=== PATIENT | female | born 1980 | race Caucasian/White ===

== ENCOUNTER 2019-10-04 13:01 | Outpatient (CLI) | payer OTHER ==
[~2019-10-04] VITALS: Ht 165.1 cm; Wt 77.5 kg
[2019-10-04 13:54] LABS: MEAN CELL VOLUME 93 fl (80.0-100.0); MEAN CORPUSCULAR HEMOGLOBIN 31 pg (27.0-31.0); MEAN CORPUSCULAR HGB CONC 33 g/dl (33.0-37.0); MEAN PLATELET VOLUME 9.2 fl (7.4-10.4); PLATELET COUNT 306 K/mm3 (130-400); RED BLOOD COUNT 3.92 M/mm3 (4.10-5.30); REDCELL DISTRIBUTION WIDTH-CV 13.2 % (11.5-14.5)
[2019-10-04 13:55] LABS: HEMATOCRIT 36.5 % (37.0-47.0)
[2019-10-04 14:06] LABS: ALBUMIN 4.1 gm/dL (3.5-5.0); BILIRUBIN,TOTAL 0.3 mg/dL (0.0-1.0); CALCIUM 9.2 mg/dL (8.4-10.2); CREATININE, serum 0.63 (0.52-1.25); POTASSIUM 3.9 mmol/L (3.4-5.0); TOTAL PROTEIN 7.8 gm/dL (6.4-8.2)
[2019-10-04] MEDS ORDERED: GAS RELIEF 8080 MG PO (14:44)
[2019-10-04] MEDS ORDERED: IMODIUM 2MG CAPS2 MG PO (14:46)
[2019-10-04] MEDS ORDERED: MULTI VITAMINS1 TAB PO (14:47)
[2019-10-04 15:04] VITALS: BP 98/79; PULSE 58; TEMP 97.6
[2019-10-04 15:30] VITALS: BP 109/81; PULSE 64
[2019-10-04 16:00] VITALS: BP 108/73; PULSE 57
[2019-10-04 16:30] VITALS: BP 95/54; PULSE 65
[2019-10-04 17:00] VITALS: BP 97/58; PULSE 70
[2019-10-04 17:15] VITALS: BP 96/65; PULSE 67; TEMP 97.9
== END 2019-10-04 17:41 | disposition home or self-care (01) ==
LOC: EUO 13:01
PROVIDERS: Internal Medicine Gastroenterology
DX: K50.90 Crohn's disease, unspecified, without complications (principal); Z79.899 Other long term (current) drug therapy
CPT/HCPCS: J1200; J2930; J7050; Q5103

== ENCOUNTER → 2019-10-14 | Outpatient (CLI) | payer OTHER ==
[~2019-10-14] MED LIST: GAS RELIEF 8080 MG PO; IMODIUM 2MG CAPS2 MG PO; MULTI VITAMINS1 TAB PO
== END ==
LOC: COL.LAB 12:34
DX: Z01.89 Encounter for other specified special examinations (principal)

== ENCOUNTER → 2020-04-23 | Outpatient (CLI) | payer OTHER | LOC: COL.RAD | DX: K50.90 Crohn's disease, unspecified, without complications (principal) | CPT/HCPCS: A9585 ==

== ENCOUNTER 2020-10-16 06:43 | Day surgery (SDC) | payer OTHER ==
[~2020-10-16] VITALS: Ht 165.1 cm; Wt 75.8 kg
[~2020-10-16 06:43] MED LIST changes: +DUO-KAPS1 CAP PO; -MULTI VITAMINS1 TAB PO
[2020-10-16 07:14] VITALS: BP 106/76; PULSE 80; TEMP 97.7
[2020-10-16] MEDS ORDERED: COLESTID 1GM1 G PO (07:24)
[2020-10-16] MEDS ORDERED: NORCO 325 MG-51 TAB PO (07:25)
[2020-10-16] MEDS ORDERED: NIFEDIPINE/LIDOCAINE TP (07:27)
[2020-10-16] MEDS ORDERED: CANASA 1000MG1000 MG RC (07:28)
[2020-10-16 08:50] VITALS: BP 116/93; PULSE 72; TEMP 97.7
[2020-10-16 09:00] VITALS: BP 108/74; PULSE 54
[2020-10-16 09:15] VITALS: BP 106/74; PULSE 57
[2020-10-16 09:30] VITALS: BP 105/71; PULSE 52
[2020-10-16 09:45] VITALS: BP 107/80; PULSE 53
== END 2020-10-16 10:00 | disposition home or self-care (01) ==
LOC: SDCO 06:43
DX: K52.9 Noninfective gastroenteritis and colitis, unspecified (principal); K62.4 Stenosis of anus and rectum; K64.4 Residual hemorrhoidal skin tags; K50.10 Crohn's disease of large intestine without complications; K50.00 Crohn's disease of small intestine without complications; J45.909 Unspecified asthma, uncomplicated; Z20.822 Contact with and (suspected) exposure to COVID-19; Z98.0 Intestinal bypass and anastomosis status; Z79.899 Other long term (current) drug therapy; Z90.49 Acquired absence of other specified parts of digestive tract; Z93.2 Ileostomy status
CPT/HCPCS: J2704; J3010; J7120

== ENCOUNTER 2021-04-29 08:54 | Outpatient (CLI) | payer OTHER ==
--- NOTE | 2021-04-10 14:25 | NUR ---
Pt arrived for apt today.Med is not here.Pt agrees to reschedule.PA .Nikita,Nurse at office notifie.
[~2021-04-29] VITALS: Ht 165.1 cm; Wt 79.0 kg
[~2021-04-29 08:54] MED LIST changes: +CANASA 1000MG1000 MG RC; +COLESTID 1GM1 G PO; +NIFEDIPINE/LIDOCAINE TP; +NORCO 325 MG-51 TAB PO
[2021-04-29] MEDS ORDERED: WELLBUTRIN SR150 M1 PO (09:30)
[2021-04-29 09:45] VITALS: BP 104/71; PULSE 97; TEMP 98.7
--- NOTE | 2021-04-29 13:36 | NUR ---
Pt stayed 2 hours after infusion, had no adverse reactions, pt DCd own IV, left unit ambulatory.
== END 2021-04-29 13:40 | disposition home or self-care (01) ==
LOC: EUO 08:54
DX: K50.00 Crohn's disease of small intestine without complications (principal)
CPT/HCPCS: J3358; J7050